=== PATIENT | male | born 1975 | race Caucasian/White ===

== ENCOUNTER → 2018-06-29 | Outpatient (REF) | payer OTHER ==
[~2018-06-29] MED LIST: IBUP80TA PO; PROAAER10 INH; ZITHTAB PO; ZOFR4TAB14 PO
[2018-06-29 11:37] LABS: INFLUENZA A AMPLIFICATION NEGATIVE (NEGATIVE); INFLUENZA B AMPLIFICATION NEGATIVE (NEGATIVE)
== END ==
LOC: M LAB REF 10:49
PROVIDERS: ATTEND Physician Assistant
DX: J11.1 Influenza due to unidentified influenza virus with other respiratory manifestations (principal)

== ENCOUNTER → 2018-08-05 | Outpatient (REF) | payer OTHER ==
[2018-08-05 13:04] LABS: ALBUMIN 4.4 GM/DL (3.2-5.2); ALT/SGPT 80 U/L (12-78); BILIRUBIN,TOTAL 0.3 MG/DL (0.2-1.0); BLOOD UREA NITROGEN 15 MG/DL (7-18); CARBON DIOXIDE LEVEL 26 MEQ/L (21-32); CHLORIDE LEVEL 107 MEQ/L (98-107); CHOLESTEROL LEVEL 217 MG/DL (<200); CHOLESTEROL RISK RATIO 5.292 (<5); CREATININE FOR GFR 0.95 MG/DL (0.70-1.30); GLOMERULAR FILTRATION RATE > 60.0 (>60); GLUCOSE, FASTING 137 MG/DL (70-100); HDL CHOLESTEROL 41 MG/DL (>40); LDL CHOLESTEROL 154 MG/DL (<100); NON-HDL-C 176 MG/DL; POTASSIUM SERUM 4.7 MEQ/L (3.5-5.1); SODIUM LEVEL 140 MEQ/L (136-145); TOTAL PROTEIN 7.8 GM/DL (6.4-8.2); TRIGLYCERIDES LEVEL 112 MG/DL (<150)
== END ==
LOC: M LAB REF 11:50
PROVIDERS: ATTEND Family Medicine Addiction Medicine
DX: R73.9 Hyperglycemia, unspecified (principal)

== ENCOUNTER → 2018-08-12 | Outpatient (REF) | payer OTHER ==
[2018-08-12 14:28] LABS: ALBUMIN 4.3 GM/DL (3.2-5.2); ALT/SGPT 57 U/L (12-78); BILIRUBIN,TOTAL 0.2 MG/DL (0.2-1.0); BLOOD UREA NITROGEN 17 MG/DL (7-18); CALCIUM LEVEL 8.9 MG/DL (8.5-10.1); CARBON DIOXIDE LEVEL 26 MEQ/L (21-32); CHLORIDE LEVEL 107 MEQ/L (98-107); CREATININE FOR GFR 0.95 MG/DL (0.70-1.30); GLOMERULAR FILTRATION RATE > 60.0 (>60); GLUCOSE, FASTING 116 MG/DL (70-100); POTASSIUM SERUM 4.5 MEQ/L (3.5-5.1); SODIUM LEVEL 139 MEQ/L (136-145); TOTAL PROTEIN 7.6 GM/DL (6.4-8.2)
[2018-08-12 15:37] LABS: HEMOGLOBIN A1c 6.3 %
== END ==
LOC: M LAB REF 11:35
PROVIDERS: ATTEND Family Medicine Addiction Medicine
DX: R73.9 Hyperglycemia, unspecified (principal)

== ENCOUNTER 2019-01-09 09:55 | Inpatient (IN) | payer OTHER ==
[~2019-01-09] VITALS: Ht 177.8 cm; Wt 118.0 kg
[~2019-01-09 09:55] MED LIST changes: -ALL10TAB29 PO; -ATOR40TA75 PO; -BASA100I; -GLUC1INJ21 SC; -INSUDET SC; -INSUHUMDS SC; -LISI-538 PO; -METF-791; -RANI150T14 PO; -VENTAER INH
[2019-01-09] MEDS ORDERED: LISI-538 PO (10:38)
[2019-01-09] MEDS ORDERED: ATOR40TA75 PO (10:38)
[2019-01-09 10:46] LABS: BASO # 0.1 10^3/uL (0.0-0.2); BASO % 0.6 % (0.0-1.0); EOS # 0.1 10^3/uL (0.0-0.5); EOS % 0.9 % (0.0-3.0); HEMATOCRIT 48.3 % (42.0-52.0); HEMOGLOBIN 16.1 g/dl (13.5-17.5); LYMPH % 12.5 % (24.0-44.0); MEAN CORPUSCULAR HEMOGLOBIN 27.6 pg (27.0-33.0); MEAN CORPUSCULAR HGB CONC 33.3 g/dl (32.0-36.5); MEAN CORPUSCULAR VOLUME 82.7 fl (80.0-96.0); MONO # 0.6 10^3/uL (0.0-0.8); MONO % 7.2 % (0.0-5.0); NEUTROPHILS # 6.3 10^3/uL (1.5-8.5); NEUTROPHILS % 78.2 % (36.0-66.0); PLATELET COUNT, AUTOMATED 235 10^3/uL (150-450); RED BLOOD COUNT 5.84 10^6/uL (4.30-6.10); WHITE BLOOD COUNT 8.1 10^3/uL (4.0-10.0)
[2019-01-09 11:46] LABS: ALBUMIN 4.3 GM/DL (3.2-5.2); ALT/SGPT 31 U/L (12-78); BILIRUBIN,DIRECT 0.2 MG/DL (0.0-0.2); BILIRUBIN,TOTAL 0.6 MG/DL (0.2-1.0); BLOOD UREA NITROGEN 18 MG/DL (7-18); CALCIUM LEVEL 9.6 MG/DL (8.5-10.1); CARBON DIOXIDE LEVEL 24 MEQ/L (21-32); CHLORIDE LEVEL 92 MEQ/L (98-107); CK-MB VALUE MASS 1.4 NG/ML (<3.6); CPK CREATINE PHOSPHOKINASE 59 U/L (39-308); CREATININE FOR GFR 1.23 MG/DL (0.70-1.30); FREE T4 1.12 NG/DL (0.76-1.46); GLOMERULAR FILTRATION RATE > 60.0 (>60); GLUCOSE, FASTING 761 MG/DL (70-100); LIPASE 596 U/L (73-393); MB/CK RELATIVE INDEX 2.37 (< OR =4); NT-PRO BNP 9 PG/ML (<125); POTASSIUM SERUM 6.7 MEQ/L (3.5-5.1); SODIUM LEVEL 129 MEQ/L (136-145); TOTAL PROTEIN 7.8 GM/DL (6.4-8.2); TROPONIN I < 0.02 NG/ML (< 0.10)
[2019-01-09] MEDS ORDERED: ISOVUE-370 76% 100ML VIAL (Q9967) As Ordered ONE (11:50)
[2019-01-09] MEDS ORDERED: NS 1,000 ML IV ONE ×2 (12:00→12:45)
[2019-01-09] MEDS ORDERED: ONDANSETRON 4MG/2ML VIAL (J2405) IV ONE (12:00)
[2019-01-09 12:39] LABS: HEMOGLOBIN A1c 12.3 %
[2019-01-09 12:40] LABS: AMPHETAMINES LEVEL URINE NEGATIVE (NEGATIVE); BARBITURATES URINE NEGATIVE (NEGATIVE); BENZODIAZEPINES URINE NEGATIVE (NEGATIVE); CANNABINOIDS URINE NEGATIVE (NEGATIVE); COCAINE METABOLITE URINE NEGATIVE (NEGATIVE); METHADONE URINE NEGATIVE (NEGATIVE); OPIATES URINE NEGATIVE (NEGATIVE); PHENCYCLIDINE URINE NEGATIVE (NEGATIVE)
--- NOTE | 2019-01-09 12:51 | REP ---
CT SOFT TISSUES NECK: CT soft tissues neck performed in the axial plane following the intravenous administration of 100 mL of Isovue 370. Sagittal and coronal reconstruction images are performed. There is no significant adenopathy. No mass is seen of the thyroid, parotid or submandibular glands. The airway is widely patent with no narrowing. There is no evidence of epiglottitis. There is no prevertebral soft tissue swelling or abscess. Allen tonsils appear symmetrical. There are mild degenerative changes of the cervical spine. There is a rounded soft tissue density in the posterior inferior left maxillary sinus 1.5 cm in diameter compatible with a retention cyst or polyp. IMPRESSION: No significant acute abnormality. Retention cyst or polyp left maxillary sinus inferiorly 1.5 cm in diameter. Airway widely patent. No mass or adenopathy in the soft tissues of the neck. Electronically Signed by Bill Yo MD 01/09/2019 04:19 P
--- NOTE | 2019-01-09 13:00 | REP ---
CT of the abdomen pelvis with IV contrast, without bowel contrast for diffuse abdominal pain, nausea and weight loss: There are no comparisons. The visualized lower lung marquez are unremarkable. The hepatic parenchyma is less dense than the spleen compatible with hepato steatosis. No hepatic masses are identified. The gallbladder, pancreas and spleen are unremarkable. The kidneys, adrenals and abdominal aorta are unremarkable, except for a 9 mm left renal cortical cyst. There is no retroperitoneal or mesenteric adenopathy. There is no bowel distension or obstruction. The mesentery is unremarkable. Pelvis: The appendix is unremarkable. The bladder is unremarkable. The pelvic bowel loops are unremarkable. There is no pelvic ascites or adenopathy. The thoracic seven vertebral body as an ivory vertebra. This is nonspecific but can be seen in blastic metastasis, Paget's disease and lymphoma. Impression: Essentially negative CT of the abdomen pelvis except that the 7th thoracic vertebra is an ivory vertebra, as discussed. Electronically Signed by Bill Garza MD 01/09/2019 12:50 P
[2019-01-09 13:09] LABS: BLOOD UREA NITROGEN 16 MG/DL (7-18); CALCIUM LEVEL 9.1 MG/DL (8.5-10.1); CARBON DIOXIDE LEVEL 20 MEQ/L (21-32); CHLORIDE LEVEL 96 MEQ/L (98-107); CREATININE FOR GFR 1.04 MG/DL (0.70-1.30); GLOMERULAR FILTRATION RATE > 60.0 (>60); GLUCOSE, FASTING 539 MG/DL (70-100); SODIUM LEVEL 132 MEQ/L (136-145)
[2019-01-09] MEDS ORDERED: INSULIN IV RATE CHANGE DOCUMENTATION ML/HR XX SCH (14:15)
[2019-01-09] MEDS ORDERED: INSULIN HUMAN REGULAR 100 UNITS in NS 99 ML IV SCH ×2 (14:30→15:00)
[2019-01-09] MEDS ORDERED: ALL10TAB29 PO (14:41)
[2019-01-09] MEDS ORDERED: VENTAER INH (14:41)
[2019-01-09] MEDS ORDERED: RANI150T14 PO (14:41)
[2019-01-09 14:55] LABS: VENOUS BASE EXCESS -4.4 (-2.0-2.0); VENOUS HCO3 20.3 MEQ/L (23.0-27.0); VENOUS O2 SATURATION 99.2 % (60.0-80.0); VENOUS PARTIAL PRESSURE CO2 36.8 mmHg (38.0-50.0); VENOUS PARTIAL PRESSURE O2 205.5 mmHg (30.0-50.0); VENOUS STANDARD HCO3 20.9 MEQ/L; VENOUS TOTAL CO2 21.5 MEQ/L (24.0-28.0)
[2019-01-09 16:28] LABS: VENOUS BASE EXCESS -4.9 (-2.0-2.0); VENOUS HCO3 20.8 MEQ/L (23.0-27.0); VENOUS O2 SATURATION 96.1 % (60.0-80.0); VENOUS PARTIAL PRESSURE CO2 40.9 mmHg (38.0-50.0); VENOUS PARTIAL PRESSURE O2 85.3 mmHg (30.0-50.0); VENOUS PH 7.324 UNITS (7.330-7.430); VENOUS STANDARD HCO3 20.4 MEQ/L
[2019-01-09 17:16] VITALS: BP 126/84
[2019-01-09] MEDS ORDERED: NS 1,000 ML IV SCH (17:23)
[2019-01-09] MEDS: INSULIN HUMAN REGULAR 100 UNITS in NS 99 ML IV SCH (17:23)
[2019-01-09] MEDS ORDERED: ONDANSETRON 4MG/2ML VIAL (J2405) IV PRN (17:30)
[2019-01-09] MEDS ORDERED: CETIRIZINE (ZyrTEC) 10 MG TAB PO PRN (17:30)
[2019-01-09 18:07] LABS: BLOOD UREA NITROGEN 15 MG/DL (7-18); CALCIUM LEVEL 8.9 MG/DL (8.5-10.1); CARBON DIOXIDE LEVEL 22 MEQ/L (21-32); CHLORIDE LEVEL 102 MEQ/L (98-107); GLOMERULAR FILTRATION RATE > 60.0 (>60); GLUCOSE, FASTING 255 MG/DL (70-100); MAGNESIUM LEVEL 2.2 MG/DL (1.8-2.4); POTASSIUM SERUM 4.1 MEQ/L (3.5-5.1); SODIUM LEVEL 136 MEQ/L (136-145)
[2019-01-09] MEDS: INSULIN IV RATE CHANGE DOCUMENTATION ML/HR XX SCH ×4 (18:09→23:00)
[2019-01-09] MEDS ORDERED: DEXTROSE 50% 50 ML SYRINGE IV PRN (18:15)
[2019-01-09] MEDS ORDERED: GLUCAGON FOR INJ 1 MG VIAL (J1610) SC PRN (18:15)
[2019-01-09] MEDS ORDERED: GLUCOSE 4 GM CHEW TABLET PO PRN (18:15)
[2019-01-09] MEDS: ENOXAPARIN 40 MG/0.4 ML SYRINGE (J1650) SC SCH (18:23)
[2019-01-09 18:57] LABS: OSMOLALITY SERUM 293 MOSM/KG (275-295)
[2019-01-09 20:00] VITALS: BP 118/74
[2019-01-09] MEDS ORDERED: D5W/0.45% SODIUM CHLORIDE 1,000 ML IV SCH (20:00)
[2019-01-09] MEDS: ATORVASTATIN 20 MG TAB PO SCH (20:10)
[2019-01-09] MEDS: PANTOPRAZOLE 40MG INJ (PROTONIX) (C9113) IV SCH (20:10)
[2019-01-09] MEDS: RAMELTEON 8 MG TAB (ROZEREM) PO SCH (20:10)
[2019-01-09 22:32] LABS: BLOOD UREA NITROGEN 13 MG/DL (7-18); CALCIUM LEVEL 8.2 MG/DL (8.5-10.1); CARBON DIOXIDE LEVEL 25 MEQ/L (21-32); CHLORIDE LEVEL 103 MEQ/L (98-107); CREATININE FOR GFR 0.82 MG/DL (0.70-1.30); GLOMERULAR FILTRATION RATE > 60.0 (>60); GLUCOSE, FASTING 177 MG/DL (70-100); POTASSIUM SERUM 3.6 MEQ/L (3.5-5.1); SODIUM LEVEL 138 MEQ/L (136-145)
--- NOTE | 2019-01-09 22:42 | HPEPDOC ---
General Date of Admission Jan 09, 2019 at 14:43 Date of Service: Jan 09, 2019 Chief Complaint The patient is a 43-year-old male admitted with a reason for visit of Hyperglycemia Due To Type 2 Diabetes Mellitus. Source: Patient Exam Limitations: No limitations Timing/Duration: Week(s), Getting worse Severity: Moderate Associated Symptoms: Loss of appetite, Nausea, Vomiting, Weakness, Other History of Present Illness This is a 43-year-old male who's had about 3 months of malaise. It has been worsening. He has had nausea and vomiting. He's had some diarrhea. Most notable is that he has had remarkable thirst with polydipsia, polyphagia, polyuria, and blurred vision. Patient had been told a few months ago that he had "borderline" or "pre-" diabetes. The patient presents with hyperglycemia with serum glucose greater than 700. The patient has also been complaining of cough. He's actually had this greater than 2 years. He states the cough is productive of significant volume of phlegm. He also has posttussive emesis with it. Home Medications Scheduled Atorvastatin Calcium (Atorvastatin Calcium) 40 Mg Tablet, 40 MG PO QPM, ( Reported) Lisinopril (Lisinopril) 20 Mg Tablet, 20 MG PO DAILY, (Reported) Scheduled PRN Albuterol Sulfate (Ventolin Hfa) 18 Gm Hfa.aer.ad, 2 PUFF INH Q4H PRN for SOB/WHEEZING, (Reported) Cetirizine HCl (Cetirizine HCl) 10 Mg Tablet, 10 MG PO DAILY PRN for SEASONAL ALLERGIES, (Reported) Ranitidine HCl (Ranitidine HCl) 150 Mg Tablet, 150 MG PO BID PRN for HEARTBURN, (Reported) Allergies Coded Allergies: No Known Allergies (Unverified , 05/04/17) Past Medical History Medical History Past medical history includes psoriasis, degenerative disc disease, depression, headaches Surgical History The patient denies any history of surgery. 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 A-FIB/CHADSVASC A-FIB History Current/History of A-Fib/PAF?: No Current PO Anticoag Therapy: No Review of Systems Other systems 10 system review is otherwise negative except as stated in the brief HPI. Physical Examination General Exam: Positive: Alert, Cooperative, Mild Distress Eye Exam: Positive: PERRLA, Conjunctiva & lids normal, EOMI ENT Exam: Positive: Atraumatic, Tongue Midline, Nares Patent, Other ENT (lip. Tongue and oral mucosa are dry) Neck Exam: Positive: Supple; Negative: JVD, thyromegaly Chest Exam: Positive: Clear to auscultation, Normal air movement Telemetry: Positive: Sinus Abdomen Exam: Positive: Normal bowel sounds, Soft, Other (patient has notable central obesity with a BMI of 37); Negative: Tenderness, Hepatospenomegaly Extremity Exam: Positive: Normal pulses, Other (toenails are in good condition); Negative: Clubbing, Cyanosis, Edema Skin Exam: Positive: Lesion (patient does have some psoriatic lesions to his legs) Neuro Exam: Positive: Normal Gait, Normal Speech, Cranial Nerves 3-12 NL, Reflexes 2+ Psych Exam: Positive: Anxiety, Oriented x 3 Vital Signs Vital Signs Date Time Temp Pulse Resp B/P (MAP) Pulse Ox O2 Delivery O2 Flow Rate FiO2 01/09/19 22:00 96 96 01/09/19 20:00 97.9 18 118/74 (89) 01/09/19 10:40 Room Air Laboratory Data Labs 24H Laboratory Tests 2 01/09/19 10:12: Immature Granulocyte % (Auto) 0.6, White Blood Count 8.1, Red Blood Count 5.84, Hemoglobin 16.1, Hematocrit 48.3, Mean Corpuscular Volume 82.7, Mean Corpuscular Hemoglobin 27.6, Mean Corpuscular Hemoglobin Concent 33.3, Red Cell Distribution Width 12.2, Platelet Count 235, Neutrophils (%) (Auto) 78.2H, Lymphocytes (%) (Auto) 12.5L, Monocytes (%) (Auto) 7.2H, Eosinophils (%) (Auto) 0.9, Basophils (%) (Auto) 0.6, Neutrophils # (Auto) 6.3, Lymphocytes # (Auto) 1.0L, Monocytes # (Auto) 0.6, Eosinophils # (Auto) 0.1, Basophils # (Auto) 0.1, Nucleated Red Blood Cells % (auto) 0.0, Anion Gap 13, Glomerular Filtration Rate > 60.0, Calcium Level 9.6, Aspartate Amino Transf (AST/SGOT) 10, Alanine Aminotransferase (ALT/SGPT) 31, Alkaline Phosphatase 141H, Total Bilirubin 0.6, Direct Bilirubin 0.2, Total Creatine Kinase 59, Creatine Kinase MB 1.4, Creatine Kinase MB Relative Index 2.37, Troponin I < 0.02, BC-Xyw-N-Type Natriuretic Peptide 9, Total Protein 7.8, Albumin 4.3, Albumin/Globulin Ratio 1.23, Lipase 596H, Thyroid Stimulating Hormone (TSH) 1.530, Free Thyroxine 1.12 01/09/19 10:20: Estimated Mean Plasma Glucose 306H, Hemoglobin A1c 12.3 01/09/19 11:28: Urine Color COLORLESS, Urine Appearance CLEAR, Urine pH 6.0, Urine Specific [place] 1.027, Urine Protein NEGATIVE, Urine Glucose (UA) 3+H, Urine Ketones 1+H, Urine Blood NEGATIVE, Urine Nitrite NEGATIVE, Urine Bilirubin NEGATIVE, Urine Urobilinogen 0.2, Urine Leukocyte Esterase NEGATIVE, Urine WBC (Auto) 0, Urine RBC (Auto) 1, Urine Hyaline Casts (Auto) 0, Urine Bacteria (Auto) NEGATIVE, Urine Squamous Epithelial Cells 0, Urine Sperm (Auto) 01/09/19 12:02: Urine Amphetamines Screen NEGATIVE, Urine Benzodiazepines Screen NEGATIVE, Urine Opiates Screen NEGATIVE, Urine Methadone Screen NEGATIVE, Urine Barbiturates S creen NEGATIVE, Urine Phencyclidine Screen NEGATIVE, Urine Cocaine Metabolite Screen NEGATIVE, Urine Cannabinoids Screen NEGATIVE 01/09/19 12:21: POC Glucose (Misc Panel) 601*H, POC Sodium (Misc Panel) 132L, POC Potassium (Misc Panel) 5.0, POC Chloride (Misc Panel) 98, POC Total CO2 (Misc Panel) 22.0L, POC Blood Urea Nitrogen (Misc Panel 17, POC Ionized Calcium (Misc Panel) 4.6, POC Creatinine (Misc Panel) 0.8, POC Hematocrit (Misc Panel) 45.0 01/09/19 12:25: Anion Gap 16, Glomerular Filtration Rate > 60.0, Blood Urea Nitrogen 16, Creatinine 1.04, Sodium Level 132L, Potassium Level 5.0#, Chloride Level 96L, Carbon Dioxide Level 20L, Calcium Level 9.1 01/09/19 14:27: Bedside Glucose (Misc Panel) 462H 01/09/19 14:32: POC Lactate (Misc Panel) 1.25 01/09/19 14:40: Blood Gas Bicarbonate Standard 20.9, Venous Blood pH 7.360, Venous Blood Partial Pressure CO2 36.8L, Venous Blood Partial Pressure O2 205.5H, Venous Blood Total Carbon Dioxide 21.5L, Venous Blood HCO3 20.3L, Venous Blood Oxygen Saturation 99.2H, Venous Blood Base Excess -4.4L, B-Hydroxybutyrate 33.76H 01/09/19 16:12: Blood Gas Bicarbonate Standard 20.4, Venous Blood pH 7.324L, Venous Blood Partial Pressure CO2 40.9, Venous Blood Partial Pressure O2 85.3H, Venous Blood Total Carbon Dioxide 22.0L, Venous Blood HCO3 20.8L, Venous Blood Oxygen Saturation 96.1H, Venous Blood Base Excess -4.9L 01/09/19 16:15: Bedside Glucose (Misc Panel) 407H 01/09/19 17:09: Bedside Glucose (Misc Panel) 294H 01/09/19 17:37: Anion Gap 12, Glomerular Filtration Rate > 60.0, Osmolality 293, Blood Urea Nitrogen 15, Creatinine 1.00, Sodium Level 136, Potassium Level 4.1, Chloride Level 102, Carbon Dioxide Level 22, Calcium Level 8.9, Magnesium Level 2.2 01/09/19 18:08: Bedside Glucose (Misc Panel) 249H 01/09/19 19:17: Osmolality 290 01/09/19 19:26: Bedside Glucose (Misc Panel) 202H 01/09/19 20:08: Bedside Glucose (Misc Panel) 174H 01/09/19 21:02: Bedside Glucose (Misc Panel) 182H 01/09/19 21:54: Bedside Glucose (Misc Panel) 186H 01/09/19 21:57: CBC/BMP Laboratory Tests 01/09/19 10:12 Red Blood Count 5.84, Mean Corpuscular Volume 82.7, Mean Corpuscular Hemoglobin 27.6, Mean Corpuscular Hemoglobin Concent 33.3, Red Cell Distribution Width 12.2, Neutrophils (%) (Auto) 78.2 H, Lymphocytes (%) (Auto) 12.5 L, Monocytes (%) (Auto) 7.2 H, Eosinophils (%) (Auto) 0.9, Basophils (%) (Auto) 0.6, Neutrophils # (Auto) 6.3, Lymphocytes # (Auto) 1.0 L, Monocytes # (Auto) 0.6, Eosinophils # (Auto) 0.1, Basophils # (Auto) 0.1 01/09/19 12:25 Calcium Level 9.1 01/09/19 17:37 Calcium Level 8.9 Assessment/Plan 1. Hyperglycemia. This appears to be new onset [id number] diabetes mellitus. Patient's A1c is 12.3, which is consistent with blood sugars on average of 306. Current presentation resembles hyperglycemic hyperosmolar nonketotic syndrome as opposed to DKA. Patient is being treated with an insulin drip and IV fluids. He will ultimately be transitioned to basal bolus insulin regimen. Nutrition services have been consulted for diabetes diet education and patient will receive another diabetic teaching. We have initiated discussion of disease management such as the importance of being followed by a clinical appeals reviewer, concrete block mason and practice professional. We have discussed complications such as vasculopathy, neuropathy, nephropathy and retinopathy. 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 Other findings included hepatosteatosis, left maxillary sinus cyst and simple renal cysts. There are otherwise no findings of adenopathy or other lesions to any organs. The term "Ivory vertebrae" usually refers to Paget's disease. It might refer to a metastatic lesion. Plans are for the patient to undergo bone scan once his blood sugars are controlled. 3. Chronic cough. Patient states he has had this productive cough for at least 2 years if not more. There has been no acute change to it. Recommend follow-up with pulmonology service; he will likely need pulmonary function tests. This can be done outpatient. The patient is inpatient status. Anticipate his length of stay will be greater than 2 midnights. We anticipate that all of his symptoms of new onset diabetes will resolve. Plan / VTE VTE Prophylaxis Ordered?: Yes Plan IVF: Initiate, Continue Diet: Make NPO Activity: Continue Current Diagnostics: Check Labs, Repeat Labs in AM, Other Diagnostics (bone scan when more medically stable) Anticipated Discharge: Home NANO RASMUSSEN MD Jan 09, 2019 22:42
[2019-01-09] MEDS: KCL 40MEQ IN D5/0.45NS 1000ML 1,000 ML IV SCH (22:59)
[2019-01-09] MEDS: ACETAMINOPHEN TAB 650MG DOSE (2X325MG) PO PRN (23:03)
[2019-01-10] VITALS: BP 125/70
[2019-01-10] MEDS: INSULIN IV RATE CHANGE DOCUMENTATION ML/HR XX SCH ×3 (02:01→12:08)
[2019-01-10 02:02] LABS: BLOOD UREA NITROGEN 13 MG/DL (7-18); CALCIUM LEVEL 8.2 MG/DL (8.5-10.1); CARBON DIOXIDE LEVEL 25 MEQ/L (21-32); CHLORIDE LEVEL 103 MEQ/L (98-107); CREATININE FOR GFR 0.85 MG/DL (0.70-1.30); GLOMERULAR FILTRATION RATE > 60.0 (>60); GLUCOSE, FASTING 226 MG/DL (70-100); POTASSIUM SERUM 3.8 MEQ/L (3.5-5.1); SODIUM LEVEL 138 MEQ/L (136-145)
[2019-01-10 04:00] VITALS: BP 118/76
[2019-01-10] MEDS: INSULIN HUMAN REGULAR 100 UNITS in NS 99 ML IV SCH (04:02)
--- NOTE | 2019-01-10 04:40 | ECGEPIP ---
[facility] - ED Test Date: 2019-01-09 Pat Name: KASHIF ORNELAS Department: Room: - Gender: Male Supervisor Stone: SYEDA : 1975 Requested By: JORGE Perez PA-C Order Number: [id number] Reading MD: Refugio Dave Measurements Intervals [place] Rate: 113 P: 25 AL: 148 QRS: 40 QRSD: 84 T: -5 QT: 298 QTc: 409 Interpretive Statements SINUS TACHYCARDIA POSSIBLE INFERIOR MYOCARDIAL INFARCTION, OF INDETERMINATE AGE BENIGN EARLY REPOLARIZATION BASELINE ARTIFACT AFFECTS INTERPRETATION NO PRIORS FOR COMPARISON Electronically Signed on 01-10-2019 4:40:21 EDT by Refugio Dave
[2019-01-10] MEDS: KCL 40MEQ IN D5/0.45NS 1000ML 1,000 ML IV SCH ×2 (05:01→12:12)
[2019-01-10 05:37] LABS: BLOOD UREA NITROGEN 12 MG/DL (7-18); CARBON DIOXIDE LEVEL 24 MEQ/L (21-32); CHLORIDE LEVEL 104 MEQ/L (98-107); CREATININE FOR GFR 0.78 MG/DL (0.70-1.30); GLOMERULAR FILTRATION RATE > 60.0 (>60); GLUCOSE, FASTING 187 MG/DL (70-100); POTASSIUM SERUM 3.6 MEQ/L (3.5-5.1); SODIUM LEVEL 137 MEQ/L (136-145)
[2019-01-10 08:00] VITALS: BP 131/82
[2019-01-10] MEDS: PANTOPRAZOLE 40MG INJ (PROTONIX) (C9113) IV SCH (08:12)
[2019-01-10] MEDS: LISINOPRIL 20 MG TAB PO SCH (08:13)
[2019-01-10] MEDS ORDERED: PANTOPRAZOLE 40MG INJ (PROTONIX) (C9113) IV SCH (09:00)
[2019-01-10] MEDS: ACETAMINOPHEN TAB 650MG DOSE (2X325MG) PO PRN (09:31)
[2019-01-10 10:00] LABS: BLOOD UREA NITROGEN 11 MG/DL (7-18); CALCIUM LEVEL 8.1 MG/DL (8.5-10.1); CARBON DIOXIDE LEVEL 26 MEQ/L (21-32); CHLORIDE LEVEL 104 MEQ/L (98-107); CREATININE FOR GFR 0.76 MG/DL (0.70-1.30); GLOMERULAR FILTRATION RATE > 60.0 (>60); GLUCOSE, FASTING 185 MG/DL (70-100); POTASSIUM SERUM 3.8 MEQ/L (3.5-5.1); SODIUM LEVEL 137 MEQ/L (136-145)
[2019-01-10 12:00] VITALS: BP 128/69
[2019-01-10] MEDS ORDERED: ALBUTEROL 90 MCG/ACT 8GM HFA INHALER INH PRN (13:30)
[2019-01-10] MEDS ORDERED: LEVEMIR (INSULIN DETEMIR) 1 UNITS/0.01ML SC SCH ×2 (14:00→21:00)
[2019-01-10 16:00] VITALS: BP 130/69
[2019-01-10] MEDS: ENOXAPARIN 40 MG/0.4 ML SYRINGE (J1650) SC SCH (18:45)
[2019-01-10] MEDS: HumaLOG INSULIN (NovoLOG) PER UNIT SC SCH (18:46)
[2019-01-10 20:00] VITALS: BP 112/57
[2019-01-10] MEDS: ATORVASTATIN 20 MG TAB PO SCH (21:43)
[2019-01-10] MEDS: RAMELTEON 8 MG TAB (ROZEREM) PO SCH (21:43)
[2019-01-10] MEDS: FAMOTIDINE 20 MG TAB PO SCH (21:43)
[2019-01-10] MEDS ORDERED: HumaLOG INSULIN (NovoLOG) PER UNIT SC ONE (21:45)
[2019-01-10] MEDS ORDERED: PILL CUTTER 1 EACH XX PRN (22:00)
[2019-01-11] VITALS: BP 123/75
[2019-01-11 04:00] VITALS: BP 121/71
[2019-01-11 06:25] LABS: MEAN CORPUSCULAR HGB CONC 34.3 g/dl (32.0-36.5); MEAN CORPUSCULAR VOLUME 81.8 fl (80.0-96.0); PLATELET COUNT, AUTOMATED 182 10^3/uL (150-450); RED BLOOD COUNT 4.89 10^6/uL (4.30-6.10); WHITE BLOOD COUNT 6.1 10^3/uL (4.0-10.0)
[2019-01-11 06:43] LABS: BLOOD UREA NITROGEN 9 MG/DL (7-18); CALCIUM LEVEL 8.4 MG/DL (8.5-10.1); CARBON DIOXIDE LEVEL 23 MEQ/L (21-32); CHLORIDE LEVEL 103 MEQ/L (98-107); CREATININE FOR GFR 0.82 MG/DL (0.70-1.30); GLOMERULAR FILTRATION RATE > 60.0 (>60); GLUCOSE, FASTING 286 MG/DL (70-100); HEMOGLOBIN 13.7 g/dl (13.5-17.5); POTASSIUM SERUM 4.2 MEQ/L (3.5-5.1); SODIUM LEVEL 134 MEQ/L (136-145)
[2019-01-11 08:00] VITALS: BP 129/78
[2019-01-11] MEDS: FAMOTIDINE 20 MG TAB PO SCH (08:24)
[2019-01-11] MEDS: HumaLOG INSULIN (NovoLOG) PER UNIT SC SCH (08:24)
[2019-01-11 08:25] VITALS: BP 129/78
[2019-01-11] MEDS: LISINOPRIL 20 MG TAB PO SCH (08:25)
[2019-01-11] MEDS: ACETAMINOPHEN TAB 650MG DOSE (2X325MG) PO PRN (08:27)
[2019-01-11] MEDS ORDERED: INSUHUMDS SC (10:12)
[2019-01-11] MEDS ORDERED: GLUC1INJ21 SC (10:12)
[2019-01-11] MEDS ORDERED: INSUDET SC (10:12)
--- NOTE | 2019-01-11 10:23 | IPNPDOC ---
Subjective Date Seen The patient was seen on 01/11/19. Subjective Chief Complaint/HPI doing well this morning, no overnight issues. Eager to return home due to sick child at home Objective Physical Examination General Exam: Positive: Alert, Cooperative Eye Exam: Positive: PERRLA, Conjunctiva & lids normal, EOMI ENT Exam: Positive: Atraumatic, Tongue Midline, Nares Patent, Other ENT (lip. Tongue and oral mucosa are dry) Neck Exam: Positive: Supple; Negative: JVD, thyromegaly Chest Exam: Positive: Clear to auscultation, Normal air movement Heart Exam: Positive: Rate Normal, Regular Rhythm, Normal S1, Normal S2; Negative: Murmurs, Rubs Telemetry: Positive: Sinus Abdomen Exam: Positive: Normal bowel sounds, Soft, Other (patient has notable central obesity with a BMI of 37); Negative: Tenderness, Hepatospenomegaly Male Exam: Positive: Normal Genital Exam Extremity Exam: Positive: Normal pulses, Other; Negative: Clubbing, Cyanosis, Edema Skin Exam: Positive: Lesion (patient does have some psoriatic lesions to his legs) Neuro Exam: Positive: Normal Speech Psych Exam: Positive: Mental status NL, Mood NL, Oriented x 3 Assessment /Plan Assessment # Hyperosmolar Hyperglycemic state - resolved. - Home today - lantus 30 units qhs - Humalog sliding scale - Glucagon pen - f/u with PCP in 1 week - will need ongoing diabetic education as an outpatient - May give flu shot prior to discharge # HTN - continue lisinopril # Hyperlipidemia - continue atorvastatin # Ivory vertebrae - bone scan today, f/u results with PCP and further workup as an outpatient # DVT prophylaxis: lovenox # Dispo: Home today Plan/VTE VTE Prophylaxis Ordered?: Yes Plan Anticipated Discharge: Home VS, I&O, 24H, [place] Vital Signs/I&O Vital Signs Date Time Temp Pulse Resp B/P (MAP) Pulse Ox O2 Delivery O2 Flow Rate FiO2 01/11/19 08:25 129/78 01/11/19 08:00 98.2 85 17 96 01/09/19 10:40 Room Air I&O- Last 24 Hours up to 6 AM 01/11/19 06:00 Intake Total 1700 ml Output Total 1850 ml Balance -150 ml Laboratory Data 24H LABS Laboratory Tests 2 01/10/19 11:12: Bedside Glucose (Misc Panel) 189H 01/10/19 12:06: Bedside Glucose (Misc Panel) 206H 01/10/19 16:54: Bedside Glucose (Misc Panel) 256H 01/10/19 21:22: Bedside Glucose (Misc Panel) 372H 01/11/19 00:18: Bedside Glucose (Misc Panel) 338H 01/11/19 06:11: Nucleated Red Blood Cells % (auto) 0.0, Anion Gap 8, Glomerular Filtration Rate > 60.0, Blood Urea Nitrogen 9, Creatinine 0.82, Sodium Level 134L, Potassium Level 4.2, Chloride Level 103, Carbon Dioxide Level 23, Calcium Level 8.4L 01/11/19 08:18: Bedside Glucose (Misc Panel) 322H CBC/BMP Laboratory Tests 01/11/19 06:11 Red Blood Count 4.89, Mean Corpuscular Volume 81.8, Mean Corpuscular Hemoglobin 28.0, Mean Corpuscular Hemoglobin Concent 34.3, Red Cell Distribution Width 12.1, Calcium Level 8.4 L DAWIT PEREZ MD Jan 11, 2019 10:23
--- NOTE | 2019-01-11 12:38 | REP ---
Whole body radionuclide bone scan for an ivory vertebra: On the abdomen/pelvis CT dated 01/09/2019. The seventh vertebral body is an ivory vertebra. On the radionuclide bone scan today there is increased uptake throughout the thoracic seventh vertebral body. Uptake throughout the remainder of the skeletal structures is unremarkable. Impression: There is increased uptake in the the 7th thoracic vertebral body. On the comparison CT this vertebral body as an ivory vertebra. I would recommend MRI follow-up for further evaluation. The study is performed with MDP radiolabeled with 22 mCi of technetium 99m. Electronically Signed by Bill Garza MD 01/11/2019 12:29 P
== END 2019-01-11 12:23 | disposition home or self-care (01) | DRG 420 ==
LOC: M ED 09:55 → M ED INP 14:43 → M ICU 17:03
PROVIDERS: ADMIT Internal Medicine; ATTEND Internal Medicine
DX: E11.00 Type 2 diabetes mellitus with hyperosmolarity without nonketotic hyperglycemic-hyperosmolar coma (NKHHC) (principal); E11.65 Type 2 diabetes mellitus with hyperglycemia; Q76.49 Other congenital malformations of spine, not associated with scoliosis; E78.5 Hyperlipidemia, unspecified

== ENCOUNTER → 2019-01-09 | Outpatient (CLI) | payer OTHER ==
[~2019-01-09] MED LIST changes: +ALL10TAB29 PO; +ATOR40TA75 PO; +BASA100I; +GLUC1INJ21 SC; +INSUDET SC; +INSUHUMDS SC; +LISI-538 PO; +METF-791; +RANI150T14 PO; +VENTAER INH
--- NOTE | 2019-01-09 15:29 | REP ---
CHEST: COMPARISON: 05/04/2017 There is no evidence of acute infiltrate. No pleural effusion is seen. The heart is normal in size. The mediastinal silhouette is unremarkable. The visualized osseous structures are intact. IMPRESSION: No acute pulmonary disease. Electronically Signed by Bill Yo MD 01/09/2019 04:25 P
== END ==
LOC: M RAD 09:19
PROVIDERS: ATTEND Family Medicine Addiction Medicine
DX: J44.9 Chronic obstructive pulmonary disease, unspecified (principal)

== ENCOUNTER → 2019-02-25 | Outpatient (CLI) | payer OTHER ==
[~2019-02-25] MED LIST changes: +ALL10TAB29 PO; +ATOR40TA75 PO; +BASA100I; +GLUC1INJ21 SC; +INSUDET SC; +INSUHUMDS SC; +LISI-538 PO; +METF-791; +RANI150T14 PO; +VENTAER INH
--- NOTE | 2019-02-27 10:28 | REP ---
MRI thoracic spine: 02/25/2019. Indication: Thoracic pain. Patch disease. Comparison: 10/07/2010. Technique: Multiplanar short and long TR sequences of the thoracic spine were completed without IV Gadolinium. Findings: Abnormal marrow signal within T7 corresponds to the recently described CT finding. There is no adjacent soft tissue abnormality. The visualized cord is normal. There are no areas of significant spinal canal or neural foraminal narrowing. No focal disc herniations are present. No additional areas of significant abnormal marrow signal within the thoracic spine is detected. Impression: Diffuse abnormal marrow signal within the T7 vertebral body that does extend into the posterior elements, particularly on the right. There is no osseous expansion or adjacent soft tissue abnormalities. Gadolinium enhanced imaging or biopsy are recommended for further evaluation. The previously provided differential diagnosis remains. Electronically Signed by Edin Solis DO 02/27/2019 10:19 A
== END ==
LOC: M RAD 13:17
PROVIDERS: ATTEND Family Medicine Addiction Medicine
DX: M48.14 Ankylosing hyperostosis [Forestier], thoracic region (principal); M88.1 Osteitis deformans of vertebrae

== ENCOUNTER 2019-03-02 10:38 | Emergency (ER) | payer OTHER ==
[~2019-03-02] VITALS: Ht 177.8 cm; Wt 19.5 kg
[~2019-03-02 10:38] MED LIST changes: -BASA100I; -METF-791
[2019-03-02] MEDS ORDERED: METF-791 (10:44)
[2019-03-02] MEDS ORDERED: BASA100I (10:44)
--- NOTE | 2019-03-02 11:29 | REP ---
Two-view chest: 03/02/2019. Indication: Dyspnea. Comparison: 01/09/2019. Findings: The lungs are clear. There is no pleural effusion or pneumothorax. Cardiac silhouette is stable. Please see recent MRI thoracic spine report for additional details. Impression: No acute cardiopulmonary process. Electronically Signed by Edin Solis DO 03/02/2019 11:21 A
[2019-03-02 11:47] LABS: INFLUENZA A AMPLIFICATION NEGATIVE (NEGATIVE); INFLUENZA B AMPLIFICATION NEGATIVE (NEGATIVE)
[2019-03-02 12:13] VITALS: BP 136/90
== END 2019-03-02 12:14 | disposition home or self-care (01) ==
LOC: M ED 10:38
DX: B34.9 Viral infection, unspecified (principal); I10 Essential (primary) hypertension; J44.9 Chronic obstructive pulmonary disease, unspecified; E11.9 Type 2 diabetes mellitus without complications; Z79.4 Long term (current) use of insulin; Z79.899 Other long term (current) drug therapy

== ENCOUNTER → 2019-03-13 | Outpatient (CLI) | payer OTHER ==
[~2019-03-13] MED LIST changes: +BASA100I; +METF-791
--- NOTE | 2019-03-13 08:53 | PFTRPT ---
Site: [facility], [address] [place] [address], [address] ID: [id number] Name: KASHIF ORNELAS Visit Date: 03/13/2019 Second ID: [id number] Referring Doctor: GYPSY SANTOS MD Reviewing Doctor: Aníbal Cervantes MD Ditch Inspector: Ninfa MTZ RRT Age: 43 : 1975 Sex: Male Race: Height: 70.50 Inches Weight: 250.00 Lbs BSA: 2.31 Order IDs: [id number] Requested Test(s): <RESP-PFT.DLCO> Diagnosis: J44.0 test meet the ATS standards for acceptability and repeatability. Pt was given four puffs of albuterol for postbronchodilator. Review Status: Not Reviewed Pre-Bronch Post-Bronch Pred Actual %Pred Actual %Chng SPIROMETRY FVC (L) 5.33 4.67 87 4.44 -4 FEV1 (L) 4.22 4.00 94 3.88 -3 FEV1/FVC (%) 79 86 108 87 1 FEF 25% (L/sec) 8.72 6.57 75 6.35 -3 FEF 50% (L/sec) 5.73 4.44 77 4.31 -2 FEF 75% (L/sec) 2.01 2.55 126 2.17 -15 FEF 25-75% (L/sec) 3.91 4.11 105 3.98 -3 FEF Max (L/sec) 10.23 8.26 80 8.52 3 FIVC (L) 4.75 4.59 -3 FIF 50% (L/sec) 5.18 5.74 110 7.01 22 FIF Max (L/sec) 5.84 7.20 23 MVV (L/min) 164 113 68 Expiratory Time (sec) 6.68 6.36 -4 Back Extrap Vol (L) 0.15 0.08 -47 Time To FEFmax (sec) 0.101 0.062 -38 LUNG VOLUMES SVC (L) 5.14 4.76 92 IC (L) 3.50 3.03 86 ERV (L) 1.64 1.73 105 TGV (L) 3.54 2.55 72 RV (Pleth) (L) 1.90 0.82 43 TLC (Pleth) (L) 7.04 5.58 79 RV/TLC (Pleth) (%) 27 15 54 DIFFUSION DLCOunc (ml/min/mmHg) 32.71 27.23 83 DLCOcor (ml/min/mmHg) 32.71 27.23 83 DL/VA (ml/min/mmHg/L) 4.65 4.73 101 VA (L) 7.04 5.75 81 BHT (sec) 9.95 IVC (L) 4.35 TLC (SB) (L) 5.90 AIRWAYS RESISTANCE Raw (cmH2O/L/s) 1.45 1.08 74 Gaw (L/s/cmH2O) 1.03 0.94 91 sRaw (cmH2O*s) 4.76 3.41 71 sGaw (1/cmH2O*s) 0.20 0.29 146 BLOOD GASES Hgb (gm/dL) 14.6
== END ==
LOC: M CARPUL 08:01
PROVIDERS: ATTEND Family Medicine Addiction Medicine
DX: J44.0 Chronic obstructive pulmonary disease with (acute) lower respiratory infection (principal)

== ENCOUNTER → 2019-04-10 | Outpatient (CLI) | payer OTHER ==
[2019-04-10 08:25] LABS: BASO % 0.5 % (0.0-1.0); EOS # 0.1 10^3/uL (0.0-0.5); EOS % 1.4 % (0.0-3.0); HEMATOCRIT 44.5 % (42.0-52.0); HEMOGLOBIN 14.7 g/dl (13.5-17.5); LYMPH # 1.8 10^3/uL (1.5-5.0); LYMPH % 21.6 % (24.0-44.0); MEAN CORPUSCULAR HEMOGLOBIN 27.2 pg (27.0-33.0); MEAN CORPUSCULAR VOLUME 82.4 fl (80.0-96.0); MONO # 0.7 10^3/uL (0.0-0.8); NEUTROPHILS # 5.8 10^3/uL (1.5-8.5); NEUTROPHILS % 68.1 % (36.0-66.0); PLATELET COUNT, AUTOMATED 272 10^3/uL (150-450); WHITE BLOOD COUNT 8.5 10^3/uL (4.0-10.0)
[2019-04-10 09:07] LABS: ALBUMIN 3.8 GM/DL (3.2-5.2); ALT/SGPT 40 U/L (12-78); BILIRUBIN,TOTAL 0.4 MG/DL (0.2-1.0); BLOOD UREA NITROGEN 9 MG/DL (7-18); CALCIUM LEVEL 8.6 MG/DL (8.5-10.1); CARBON DIOXIDE LEVEL 27 MEQ/L (21-32); CHLORIDE LEVEL 105 MEQ/L (98-107); CHOLESTEROL LEVEL 132 MG/DL (<200); CHOLESTEROL RISK RATIO 3.882 (<5); CREATININE FOR GFR 1.03 MG/DL (0.70-1.30); GLOMERULAR FILTRATION RATE > 60.0 (>60); GLUCOSE, FASTING 111 MG/DL (70-100); HDL CHOLESTEROL 34 MG/DL (>40); LDL CHOLESTEROL 76 MG/DL (<100); NON-HDL-C 98 MG/DL; POTASSIUM SERUM 4.4 MEQ/L (3.5-5.1); PROSTATIC SPECIFIC AG MONITOR 0.34 NG/ML (< 4.00); SODIUM LEVEL 139 MEQ/L (136-145); TOTAL PROTEIN 7.3 GM/DL (6.4-8.2); TRIGLYCERIDES LEVEL 112 MG/DL (<150)
[2019-04-10 09:11] LABS: MALB URINE SIEMENS 20.9 MG/L; MAU/CREAT RATIO 7.5 MCG/MG (0.0-30.0)
[2019-04-10 11:12] LABS: HEMOGLOBIN A1c 7.1 %
== END ==
LOC: M LAB 07:40
PROVIDERS: ATTEND Family Medicine Addiction Medicine
DX: R63.4 Abnormal weight loss (principal); R35.0 Frequency of micturition; R63.1 Polydipsia; I10 Essential (primary) hypertension; E11.9 Type 2 diabetes mellitus without complications

== ENCOUNTER → 2019-05-09 | Outpatient (CLI) | payer OTHER ==
[~2019-05-09] MED LIST changes: +METHACHOLINE KIT (J7674) INH ONE
--- NOTE | 2019-05-09 08:27 | PFTRPT ---
Site: [facility], [address] [place], [address] ID: [id number] Name: KASHIF ORNELAS Visit Date: 05/09/2019 Second ID: [id number] Referring Doctor: SREE Kuhn Marcus, M Reviewing Doctor: Aníbal Cervantes MD Wharfmaster: Ninfa MTZ, KARIE Age: 43 : 1975 Sex: Male Race: Height: 70.50 Inches Weight: 250.00 Lbs BSA: 2.31 Order IDs: [id number] Requested Test(s): <RESP-PFT.METH CHAL> Diagnosis: R05 of albuterol for postbronchodilator. Review Status: Not Reviewed Pre-Bronch Post-Bronch Pred Actual %Pred Actual %Chng SPIROMETRY FVC (L) 5.33 4.67 87 4.66 FEV1 (L) 4.21 3.88 92 3.82 -1 FEV1/FVC (%) 79 83 105 82 -1 FEF 25% (L/sec) 8.72 5.67 64 5.68 FEF 50% (L/sec) 5.72 4.14 72 4.09 -1 FEF 75% (L/sec) 2.01 2.31 114 1.81 -21 FEF 25-75% (L/sec) 3.90 3.87 99 3.76 -2 FEF Max (L/sec) 10.23 7.59 74 8.06 6 FIVC (L) 4.44 4.43 FIF 50% (L/sec) 5.18 8.17 157 8.57 4 FIF Max (L/sec) 8.24 8.56 3 Expiratory Time (sec) 6.51 6.48 Back Extrap Vol (L) 0.11 0.06 -42 Time To FEFmax (sec) 0.072 0.049 -32
== END ==
LOC: M CARPUL 07:32
PROVIDERS: ATTEND Physician Assistant
DX: R05 Cough (principal)
CPT/HCPCS: 94070; 95070; J7674

== ENCOUNTER → 2020-08-26 | Outpatient (CLI) | payer OTHER ==
[~2020-08-26] MED LIST changes: -ALL10TAB29 PO; +CETI-24 PO; -LISI-538 PO; +LISI20TA33 PO; -METF-791; +METF-838; -METHACHOLINE KIT (J7674) INH ONE
--- NOTE | 2020-08-26 20:45 | REP ---
INDICATION: RIGHT ANKLE INJURY COMPARISON: None. TECHNIQUE: AP, lateral, bilateral oblique views. FINDINGS: Degenerative changes and findings to suggest old injury. No acute fracture or dislocation. Mild swelling. No subcutaneous emphysema or foreign body. IMPRESSION: No acute fracture or dislocation. <Electronically signed by Diego Coates > 08/26/20 [id number]
== END ==
LOC: M RAD 17:26
PROVIDERS: ATTEND Physician Assistant Medical
DX: S94 Injury of nerves at ankle and foot level (principal); M79.89 Other specified soft tissue disorders; X58.XXXA Exposure to other specified factors, initial encounter; Y92.9 Unspecified place or not applicable

== ENCOUNTER → 2020-09-09 | Outpatient (REF) | payer OTHER ==
[2020-09-09 11:43] LABS: BASO # 0.1 10^3/uL (0.0-0.2); BASO % 0.7 % (0.0-1.0); EOS # 0.2 10^3/uL (0.0-0.5); HEMATOCRIT 44.7 % (42.0-52.0); HEMOGLOBIN 14.8 g/dl (13.5-17.5); LYMPH # 1.2 10^3/uL (1.5-5.0); LYMPH % 14.1 % (24.0-44.0); MEAN CORPUSCULAR HEMOGLOBIN 28.2 pg (27.0-33.0); MEAN CORPUSCULAR HGB CONC 33.1 g/dl (32.0-36.5); MEAN CORPUSCULAR VOLUME 85.1 fl (80.0-96.0); MONO # 0.6 10^3/uL (0.0-0.8); MONO % 7.2 % (2.0-8.0); NEUTROPHILS # 6.5 10^3/uL (1.5-8.5); NEUTROPHILS % 75.5 % (36.0-66.0); PLATELET COUNT, AUTOMATED 245 10^3/uL (150-450); RED BLOOD COUNT 5.25 10^6/uL (4.30-6.10); WHITE BLOOD COUNT 8.6 10^3/uL (4.0-10.0)
[2020-09-09 12:20] LABS: ALT/SGPT 118 U/L (12-78); BILIRUBIN,TOTAL 0.5 MG/DL (0.2-1.0); BLOOD UREA NITROGEN 16 MG/DL (7-18); CARBON DIOXIDE LEVEL 29 MEQ/L (21-32); CHLORIDE LEVEL 105 MEQ/L (98-107); CHOLESTEROL LEVEL 182 MG/DL (<200); CHOLESTEROL RISK RATIO 3.433 (<5); CREATININE FOR GFR 0.88 MG/DL (0.70-1.30); FREE T4 0.83 NG/DL (0.76-1.46); GLOMERULAR FILTRATION RATE > 60.0 (>60); GLUCOSE, FASTING 95 MG/DL (70-100); HDL CHOLESTEROL 53 MG/DL (>40); LDL CHOLESTEROL 108 MG/DL (<100); NON-HDL-C 129 MG/DL; POTASSIUM SERUM 4.8 MEQ/L (3.5-5.1); SODIUM LEVEL 138 MEQ/L (136-145); TOTAL PROTEIN 7.5 GM/DL (6.4-8.2); TRIGLYCERIDES LEVEL 103 MG/DL (<150)
[2020-09-09 13:02] LABS: HIV 1&2 SCREEN CENTAUR NEGATIVE (NEGATIVE)
[2020-09-09 13:36] LABS: HEMOGLOBIN A1c 5.4 %
[2020-09-11 00:12] LABS: PSA TOTAL 0.3 ng/mL (0.0-4.0)
== END ==
LOC: M LAB REF 11:24
PROVIDERS: ATTEND Nurse Practitioner Family
DX: Z00.00 Encounter for general adult medical examination without abnormal findings (principal); E66.9 Obesity, unspecified; E11.8 Type 2 diabetes mellitus with unspecified complications; I10 Essential (primary) hypertension

== ENCOUNTER 2021-08-22 14:41 | Emergency (ER) | payer OTHER ==
[~2021-08-22] VITALS: Ht 175.3 cm; Wt 127.3 kg
[~2021-08-22 14:41] MED LIST changes: +ARNU1INH3; +AUGM0.0534; +BENZ200C70 PO; +LOSA50TA28; +OMEP40CA5; +TRUL10IN
[2021-08-22 14:52] VITALS: BP 173/104
[2021-08-22] MEDS ORDERED: PARO30TA4 (15:06)
== END 2021-08-22 15:11 | disposition left against medical advice (07) ==
LOC: M ED 14:41
DX: Z53.21 Procedure and treatment not carried out due to patient leaving prior to being seen by health care provider (principal)

== ENCOUNTER 2021-09-01 16:04 | Emergency (ER) | payer OTHER ==
[~2021-09-01] VITALS: Ht 177.8 cm; Wt 118.2 kg
[~2021-09-01 16:04] MED LIST changes: +PARO30TA4
[2021-09-01 16:05] VITALS: BP 170/94
[2021-09-01] MEDS ORDERED: ACETAMINOPHEN 500 MG TAB PO ONE (16:25)
[2021-09-01 18:55] LABS: RSV AMPLIFICATION NEGATIVE (NEGATIVE)
== END 2021-09-01 19:50 | disposition left against medical advice (07) ==
LOC: M ED 16:04
DX: Z53.21 Procedure and treatment not carried out due to patient leaving prior to being seen by health care provider (principal)

== ENCOUNTER → 2022-01-20 | Outpatient (CLI) | payer OTHER | LOC: M SOG 14:42 | PROVIDERS: ATTEND Physician Assistant | DX: M25.532 Pain in left wrist (principal); M25.531 Pain in right wrist ==

== ENCOUNTER → 2022-03-03 | Outpatient (REF) | payer OTHER ==
[2022-03-03 14:11] LABS: ALBUMIN 3.7 GM/DL (3.2-5.2); ALT/SGPT 103 U/L (12-78); BILIRUBIN,TOTAL 0.4 MG/DL (0.2-1.0); BLOOD UREA NITROGEN 11 MG/DL (7-18); CALCIUM LEVEL 8.9 MG/DL (8.5-10.1); CARBON DIOXIDE LEVEL 28 MEQ/L (21-32); CHLORIDE LEVEL 100 MEQ/L (98-107); CREATININE FOR GFR 0.99 MG/DL (0.70-1.30); GLOMERULAR FILTRATION RATE > 60.0 (>60); GLUCOSE, FASTING 200 MG/DL (70-100); POTASSIUM SERUM 4.5 MEQ/L (3.5-5.1); SODIUM LEVEL 132 MEQ/L (136-145); TOTAL PROTEIN 7.2 GM/DL (6.4-8.2)
[2022-03-03 19:31] LABS: HEMOGLOBIN A1c 8.6 %
== END ==
LOC: M LAB REF 12:15
PROVIDERS: ATTEND Nurse Practitioner Family
DX: E11.65 Type 2 diabetes mellitus with hyperglycemia (principal)

== ENCOUNTER → 2022-03-10 | Outpatient (REF) | payer OTHER ==
[2022-03-10 20:19] LABS: MALB URINE SIEMENS < 5.0 MG/DL; MAU/CREAT RATIO 5.4 MCG/MG (0.0-30.0)
== END ==
LOC: M LAB REF 17:37
PROVIDERS: ATTEND Nurse Practitioner Family
DX: E11.65 Type 2 diabetes mellitus with hyperglycemia (principal)

== ENCOUNTER 2022-06-15 18:59 | Emergency (ER) | payer OTHER ==
[~2022-06-15] VITALS: Ht 177.8 cm; Wt 122.7 kg
[2022-06-15 18:59] VITALS: BP 185/100
[2022-06-15 20:00] LABS: RSV AMPLIFICATION NEGATIVE (NEGATIVE)
[2022-06-15] MEDS ORDERED: ONDA4TAB6 PO (22:10)
[2022-06-15] MEDS ORDERED: NIRMATRELVIR/RITONAVIR CO-PACK (EMERGENCY USE AUTH) PO SCH (22:15)
[2022-06-16] MEDS ORDERED: NIRMATRELVIR/RITONAVIR CO-PACK (EMERGENCY USE AUTH) PO SCH (09:00)
== END 2022-06-15 22:48 | disposition home or self-care (01) ==
LOC: M ED 18:59
DX: U07.1 COVID-19 (principal); E78.5 Hyperlipidemia, unspecified; E11.9 Type 2 diabetes mellitus without complications; J45.909 Unspecified asthma, uncomplicated; Z79.899 Other long term (current) drug therapy

== ENCOUNTER 2022-06-23 23:47 | Emergency (ER) | payer OTHER ==
[~2022-06-23] VITALS: Ht 177.8 cm; Wt 125.9 kg
[~2022-06-23 23:47] MED LIST changes: +ONDA4TAB6 PO
[2022-06-24] MEDS ORDERED: ACETAMINOPHEN 325 MG TAB PO ONE
[2022-06-24] MEDS ORDERED: PSEUDOEPHEDRINE 30 MG TAB PO STA (09:12)
[2022-06-24] MEDS ORDERED: KETOROLAC 30 MG/ML 1ML VIAL IV ONE (09:15)
[2022-06-24] MEDS ORDERED: NS 1,000 ML IV ONE (09:15)
[2022-06-24] MEDS ORDERED: BENZONATATE 100MG CAPSULE PO ONE (09:15)
[2022-06-24] MEDS ORDERED: LIDOCAINE VISCOUS 2% SOLN 15ML UDC SS ONE (09:15)
[2022-06-24 09:49] LABS: BASO % 0.7 % (0.0-1.0); EOS # 0.2 10^3/uL (0.0-0.5); HEMATOCRIT 44.3 % (42.0-52.0); LYMPH # 1.4 10^3/uL (1.5-5.0); LYMPH % 23.9 % (24.0-44.0); MEAN CORPUSCULAR HEMOGLOBIN 27.5 pg (27.0-33.0); MEAN CORPUSCULAR HGB CONC 33.9 g/dl (32.0-36.5); MEAN CORPUSCULAR VOLUME 81.3 fl (80.0-96.0); MONO # 0.7 10^3/uL (0.0-0.8); MONO % 12.1 % (2.0-8.0); NEUTROPHILS # 3.4 10^3/uL (1.5-8.5); NEUTROPHILS % 59.8 % (36.0-66.0); PLATELET COUNT, AUTOMATED 217 10^3/uL (150-450); RED BLOOD COUNT 5.45 10^6/uL (4.30-6.10); WHITE BLOOD COUNT 5.7 10^3/uL (4.0-10.0)
[2022-06-24] MEDS ORDERED: ISOVUE-370 76% 100ML VIAL As Ordered ONE ×2 (10:09→10:14)
[2022-06-24] MEDS ORDERED: ONDANSETRON 4MG 2ML VIAL IV ONE (10:25)
[2022-06-24] MEDS ORDERED: BENZ200C70 PO (11:27)
[2022-06-24] MEDS ORDERED: LIDO15SO4 PO (11:27)
[2022-06-24] MEDS ORDERED: PSEU120T19 PO (11:27)
[2022-06-24 11:51] VITALS: BP 175/102
== END 2022-06-24 11:54 | disposition home or self-care (01) ==
LOC: M ED 23:47
DX: U07.1 COVID-19 (principal); J06.9 Acute upper respiratory infection, unspecified; E11.9 Type 2 diabetes mellitus without complications; I10 Essential (primary) hypertension; J44.9 Chronic obstructive pulmonary disease, unspecified; R16.1 Splenomegaly, not elsewhere classified; K44.9 Diaphragmatic hernia without obstruction or gangrene; Z79.84 Long term (current) use of oral hypoglycemic drugs; Z79.899 Other long term (current) drug therapy
CPT/HCPCS: 71275; 80047; 85025; 87880; 96361; 96374; 96375; 99284; J1885; J2405; Q9967

== ENCOUNTER → 2022-07-16 | Outpatient (REF) | payer OTHER ==
[~2022-07-16] MED LIST changes: +LIDO15SO4 PO; +PSEU120T19 PO
[2022-07-16 13:50] LABS: ALBUMIN 3.8 G/DL (3.2-5.2); ALKALINE PHOSPHATASE 117 U/L (46-116); ALT/SGPT 126 U/L (7.0-40); AST/SGOT 55 U/L (<34); BILIRUBIN,TOTAL 0.5 MG/DL (0.3-1.2); BLOOD UREA NITROGEN 11 MG/DL (9-23); CALCIUM LEVEL 8.8 MG/DL (8.5-10.1); CARBON DIOXIDE LEVEL 27 MMOL/L (20-31); CHLORIDE LEVEL 103 MMOL/L (98-107); CREATININE FOR GFR 0.85 MG/DL (0.70-1.30); GLOMERULAR FILTRATION RATE > 60.0 (>60); GLUCOSE, FASTING 180 MG/DL (60-100); POTASSIUM SERUM 4.6 MMOL/L (3.5-5.1); SODIUM LEVEL 136 MMOL/L (136-145)
[2022-07-16 14:12] LABS: HEMOGLOBIN A1c 8.4 % (4.0-6.0)
== END ==
LOC: M LAB REF 12:11
PROVIDERS: ATTEND Nurse Practitioner Family
DX: E11.65 Type 2 diabetes mellitus with hyperglycemia (principal)

== ENCOUNTER 2022-09-14 10:08 | Emergency (ER) | payer OTHER ==
[~2022-09-14] VITALS: Ht 177.8 cm; Wt 126.2 kg
[~2022-09-14 10:08] MED LIST changes: +LIDO15SO PO; -LIDO15SO4 PO
[2022-09-14] MEDS ORDERED: PARO40TA2 (10:16)
[2022-09-14] MEDS ORDERED: D3 S1CAP (10:16)
[2022-09-14] MEDS ORDERED: [UNRECOGNIZED DRUG - CODE] (10:16)
[2022-09-14 11:51] VITALS: BP 176/120
== END 2022-09-14 11:57 | disposition home or self-care (01) ==
LOC: M ED 10:08
DX: H61.21 Impacted cerumen, right ear (principal); E11.9 Type 2 diabetes mellitus without complications; I10 Essential (primary) hypertension; E78.00 Pure hypercholesterolemia, unspecified

== ENCOUNTER → 2023-02-08 | Outpatient (REF) | payer OTHER ==
[~2023-02-08] MED LIST changes: +D3 S1CAP; +PARO40TA2; +[UNRECOGNIZED DRUG - CODE]
[2023-02-08 13:41] LABS: BASO % 0.2 % (0.0-1.0); EOS # 0.1 10^3/uL (0.0-0.5); EOS % 1.5 % (0.0-3.0); HEMATOCRIT 44.9 % (42.0-52.0); HEMOGLOBIN 15.2 g/dl (13.5-17.5); LYMPH # 1.5 10^3/uL (1.5-5.0); LYMPH % 17.9 % (24.0-44.0); MEAN CORPUSCULAR HEMOGLOBIN 28.7 pg (27.0-33.0); MEAN CORPUSCULAR HGB CONC 33.9 g/dl (32.0-36.5); MEAN CORPUSCULAR VOLUME 84.7 fl (80.0-96.0); MONO # 0.6 10^3/uL (0.0-0.8); MONO % 7.4 % (2.0-8.0); NEUTROPHILS # 6.2 10^3/uL (1.5-8.5); NEUTROPHILS % 72.5 % (36.0-66.0); PLATELET COUNT, AUTOMATED 247 10^3/uL (150-450); WHITE BLOOD COUNT 8.5 10^3/uL (4.0-10.0)
[2023-02-08 13:48] LABS: HEMOGLOBIN A1c 7.1 % (4.0-6.0)
[2023-02-08 14:03] LABS: ALBUMIN 3.9 G/DL (3.2-5.2); ALKALINE PHOSPHATASE 115 U/L (46-116); ALT/SGPT 48 U/L (7.0-40); AST/SGOT 23 U/L (<34); BILIRUBIN,TOTAL 0.6 MG/DL (0.3-1.2); BLOOD UREA NITROGEN 16 MG/DL (9-23); CALCIUM LEVEL 8.9 MG/DL (8.5-10.1); CARBON DIOXIDE LEVEL 30 MMOL/L (20-31); CHLORIDE LEVEL 99 MMOL/L (98-107); CHOLESTEROL LEVEL 170 MG/DL (<200); CREATININE FOR GFR 0.93 MG/DL (0.70-1.30); GLOMERULAR FILTRATION RATE > 60.0 (>60); GLUCOSE, FASTING 140 MG/DL (60-100); HDL CHOLESTEROL 43.5 MG/DL (>40); LDL CHOLESTEROL 94.7 MG/DL (<100); NON-HDL-C 126.5 MG/DL; POTASSIUM SERUM 4.4 MMOL/L (3.5-5.1); SODIUM LEVEL 135 MMOL/L (136-145); THYROID STIMULATING HORMONE 2.311 uIU/ML (0.55-4.78); TOTAL PROTEIN 7.3 G/DL (5.7-8.2); TRIGLYCERIDES LEVEL 159 MG/DL (<150)
== END ==
LOC: M LAB REF 12:20
PROVIDERS: ATTEND Nurse Practitioner Family
DX: Z13.228 Encounter for screening for other metabolic disorders (principal)

== ENCOUNTER 2023-07-16 07:44 | Emergency (ER) | payer OTHER, SELFPAY ==
[~2023-07-16] VITALS: Ht 180.3 cm; Wt 119.6 kg
[~2023-07-16 07:44] MED LIST changes: -LIDO15SO PO; +LIDO15SO8 PO
[2023-07-16] MEDS ORDERED: TRUL0.5I (07:52)
[2023-07-16] MEDS ORDERED: ARNU1INH3 (07:52)
[2023-07-16] MEDS: ACETAMINOPHEN TAB 650MG DOSE (2X325MG) PO ONE (10:39)
[2023-07-16] MEDS: KETOROLAC 30 MG/ML 1ML VIAL IM ONE (10:39)
[2023-07-16] MEDS: LIDOCAINE 5% (LIDODERM) PATCH TD ONE (10:40)
[2023-07-16] MEDS ORDERED: NAPR-837 PO (12:38)
[2023-07-16] MEDS ORDERED: METH-1165 PO (12:38)
[2023-07-16 12:49] VITALS: BP 162/98; TEMP 98.9; O2SAT 98
== END 2023-07-16 12:51 | disposition home or self-care (01) ==
LOC: M ED 07:44
DX: S39.012A Strain of muscle, fascia and tendon of lower back, initial encounter (principal); M51.37 Other intervertebral disc degeneration, lumbosacral region; M16.11 Unilateral primary osteoarthritis, right hip; X58.XXXA Exposure to other specified factors, initial encounter; Y92.009 Unspecified place in unspecified non-institutional (private) residence as the place of occurrence of the external cause; Y93.89 Activity, other specified; Y99.9 Unspecified external cause status; E11.9 Type 2 diabetes mellitus without complications; E78.5 Hyperlipidemia, unspecified; I10 Essential (primary) hypertension; K21.9 Gastro-esophageal reflux disease without esophagitis; Z79.899 Other long term (current) drug therapy
CPT/HCPCS: 72110; 73502; 96372; 99283; J1885

== ENCOUNTER → 2023-08-17 | Outpatient (REF) | payer SELFPAY, OTHER ==
[~2023-08-17] MED LIST changes: +METH-1165 PO; +NAPR-837 PO; +TRUL0.5I
[2023-08-17 13:32] LABS: BASO % 0.4 % (0.0-1.0); EOS # 0.1 10^3/uL (0.0-0.5); EOS % 1.5 % (0.0-3.0); HEMATOCRIT 46.7 % (42.0-52.0); HEMOGLOBIN 15.6 g/dl (13.5-17.5); LYMPH # 1.3 10^3/uL (1.5-5.0); LYMPH % 24.8 % (24.0-44.0); MEAN CORPUSCULAR HEMOGLOBIN 27.8 pg (27.0-33.0); MEAN CORPUSCULAR HGB CONC 33.4 g/dl (32.0-36.5); MEAN CORPUSCULAR VOLUME 83.1 fl (80.0-96.0); MONO # 0.4 10^3/uL (0.0-0.8); MONO % 8.1 % (2.0-8.0); NEUTROPHILS # 3.5 10^3/uL (1.5-8.5); PLATELET COUNT, AUTOMATED 186 10^3/uL (150-450); RED BLOOD COUNT 5.62 10^6/uL (4.30-6.10); WHITE BLOOD COUNT 5.3 10^3/uL (4.0-10.0)
[2023-08-17 14:13] LABS: ALKALINE PHOSPHATASE 93 U/L (46-116); ALT/SGPT 22 U/L (7.0-40); AST/SGOT 15 U/L (<34); BILIRUBIN,TOTAL 0.4 MG/DL (0.3-1.2); BLOOD UREA NITROGEN 14 MG/DL (9-23); CALCIUM LEVEL 9.5 MG/DL (8.5-10.1); CARBON DIOXIDE LEVEL 28 MMOL/L (20-31); CHLORIDE LEVEL 102 MMOL/L (98-107); CHOLESTEROL LEVEL 130 MG/DL (<200); CHOLESTEROL RISK RATIO 4.72 (<5); CREATININE FOR GFR 0.97 MG/DL (0.70-1.30); GLOMERULAR FILTRATION RATE > 60.0 (>60); GLUCOSE, FASTING 128 MG/DL (60-100); HDL CHOLESTEROL 27.5 MG/DL (>40); LDL CHOLESTEROL 80.7 MG/DL (<100); NON-HDL-C 102.5 MG/DL; POTASSIUM SERUM 4.8 MMOL/L (3.5-5.1); SODIUM LEVEL 137 MMOL/L (136-145); TOTAL PROTEIN 7.2 G/DL (5.7-8.2); TRIGLYCERIDES LEVEL 109 MG/DL (<150)
[2023-08-17 14:18] LABS: THYROID STIMULATING HORMONE 1.055 uIU/ML (0.55-4.78)
== END ==
LOC: M LAB REF 12:45
PROVIDERS: ATTEND Nurse Practitioner Family
DX: E66.3 Overweight (principal)

== ENCOUNTER → 2023-11-25 | Outpatient (REF) | payer SELFPAY, OTHER ==
[~2023-11-25] MED LIST changes: +ONDA-282 PO; -ONDA4TAB6 PO; +[UNRECOGNIZED DRUG - CODE]; -[UNRECOGNIZED DRUG - CODE]
[2023-11-25 13:36] LABS: BASO # 0.1 10^3/uL (0.0-0.2); BASO % 0.6 % (0.0-1.0); EOS # 0.2 10^3/uL (0.0-0.5); HEMATOCRIT 45.7 % (42.0-52.0); HEMOGLOBIN 15.2 g/dl (13.5-17.5); LYMPH # 1.2 10^3/uL (1.5-5.0); MEAN CORPUSCULAR HEMOGLOBIN 27.8 pg (27.0-33.0); MEAN CORPUSCULAR HGB CONC 33.3 g/dl (32.0-36.5); MEAN CORPUSCULAR VOLUME 83.5 fl (80.0-96.0); MONO # 0.5 10^3/uL (0.0-0.8); MONO % 6.4 % (2.0-8.0); NEUTROPHILS % 75.5 % (36.0-66.0); PLATELET COUNT, AUTOMATED 250 10^3/uL (150-450); RED BLOOD COUNT 5.47 10^6/uL (4.30-6.10); WHITE BLOOD COUNT 7.9 10^3/uL (4.0-10.0)
[2023-11-25 14:02] LABS: ALKALINE PHOSPHATASE 115 U/L (46-116); ALT/SGPT 40 U/L (7.0-40); AST/SGOT 19 U/L (<34); BILIRUBIN,TOTAL 0.5 MG/DL (0.3-1.2); BLOOD UREA NITROGEN 18 MG/DL (9-23); CALCIUM LEVEL 9.1 MG/DL (8.5-10.1); CARBON DIOXIDE LEVEL 27 MMOL/L (20-31); CHLORIDE LEVEL 100 MMOL/L (98-107); CHOLESTEROL LEVEL 198 MG/DL (<200); CREATININE FOR GFR 0.84 MG/DL (0.70-1.30); GLOMERULAR FILTRATION RATE > 60.0 (>60); GLUCOSE, FASTING 194 MG/DL (60-100); LDL CHOLESTEROL 126.6 MG/DL (<100); POTASSIUM SERUM 4.9 MMOL/L (3.5-5.1); SODIUM LEVEL 134 MMOL/L (136-145); TOTAL PROTEIN 7.3 G/DL (5.7-8.2); TRIGLYCERIDES LEVEL 137 MG/DL (<150)
[2023-11-25 14:03] LABS: THYROID STIMULATING HORMONE 2.957 uIU/ML (0.55-4.78)
== END ==
LOC: M LAB REF 12:56
PROVIDERS: ATTEND Nurse Practitioner Family
DX: E66.01 Morbid (severe) obesity due to excess calories (principal)

== ENCOUNTER 2023-12-07 15:27 | Emergency (ER) | payer OTHER, SELFPAY ==
[~2023-12-07] VITALS: Ht 180.3 cm; Wt 123.8 kg
[2023-12-07 15:39] VITALS: TEMP 98.5
[2023-12-07 16:02] LABS: BASO % 0.5 % (0.0-1.0); EOS # 0.1 10^3/uL (0.0-0.5); EOS % 1.5 % (0.0-3.0); HEMATOCRIT 44.5 % (42.0-52.0); HEMOGLOBIN 15.3 g/dl (13.5-17.5); LYMPH # 1.3 10^3/uL (1.5-5.0); MEAN CORPUSCULAR HEMOGLOBIN 28.1 pg (27.0-33.0); MEAN CORPUSCULAR HGB CONC 34.4 g/dl (32.0-36.5); MEAN CORPUSCULAR VOLUME 81.7 fl (80.0-96.0); MONO # 0.6 10^3/uL (0.0-0.8); MONO % 8.7 % (2.0-8.0); NEUTROPHILS # 5.3 10^3/uL (1.5-8.5); NEUTROPHILS % 71.9 % (36.0-66.0); PLATELET COUNT, AUTOMATED 238 10^3/uL (150-450); RED BLOOD COUNT 5.45 10^6/uL (4.30-6.10); WHITE BLOOD COUNT 7.3 10^3/uL (4.0-10.0)
[2023-12-07] MEDS: LORazepam 1 MG TAB PO ONE (16:04)
[2023-12-07 16:33] LABS: BLOOD UREA NITROGEN 14 MG/DL (9-23); CALCIUM LEVEL 9.1 MG/DL (8.5-10.1); CARBON DIOXIDE LEVEL 27 MMOL/L (20-31); CHLORIDE LEVEL 103 MMOL/L (98-107); CK-MB VALUE MASS < 1.0 NG/ML (<3.6); CPK CREATINE PHOSPHOKINASE 69 U/L (46-171); CREATININE FOR GFR 0.81 MG/DL (0.70-1.30); GLOMERULAR FILTRATION RATE > 60.0 (>60); GLUCOSE, FASTING 181 MG/DL (60-100); MB/CK RELATIVE INDEX 1.44 (< OR =4); POTASSIUM SERUM 4.6 MMOL/L (3.5-5.1); SODIUM LEVEL 134 MMOL/L (136-145)
[2023-12-07 16:36] LABS: THYROID STIMULATING HORMONE 1.735 uIU/ML (0.55-4.78)
[2023-12-07 17:44] LABS: CK-MB VALUE MASS < 1.0 NG/ML (<3.6)
[2023-12-07 17:55] LABS: CPK CREATINE PHOSPHOKINASE 66 U/L (46-171); MB/CK RELATIVE INDEX 1.51 (< OR =4)
[2023-12-07] MEDS: FUROSEMIDE 40MG/4ML VIAL IV ONE (18:25)
[2023-12-07 18:26] VITALS: BP 163/108
[2023-12-07] MEDS: METOPROLOL TART 50 MG TAB PO ONE (18:26)
[2023-12-07] MEDS ORDERED: LOSA100T46 PO (19:24)
[2023-12-07 19:31] VITALS: BP 162/106; O2SAT 96
== END 2023-12-07 19:40 | disposition home or self-care (01) ==
LOC: M ED 15:27 → EDBD 15:27 → M ED 19:40
DX: R07.89 Other chest pain (principal); I10 Essential (primary) hypertension; F41.9 Anxiety disorder, unspecified; E11.9 Type 2 diabetes mellitus without complications; E78.5 Hyperlipidemia, unspecified; K21.9 Gastro-esophageal reflux disease without esophagitis; F32.A Depression, unspecified; Z79.4 Long term (current) use of insulin; Z79.899 Other long term (current) drug therapy
CPT/HCPCS: 71045; 80048; 82550; 82553; 84443; 84484; 85025; 93005; 93041; 94760; 96374; 99285; J1940

== ENCOUNTER → 2024-03-16 | Outpatient (REF) | payer MEDICARE, OTHER, SELFPAY ==
[~2024-03-16] MED LIST changes: +LOSA100T46 PO
[2024-03-16 19:37] LABS: HEMOGLOBIN A1c 9.9 % (4.0-6.0)
[2024-03-16 20:06] LABS: ALBUMIN 3.8 G/DL (3.2-5.2); ALKALINE PHOSPHATASE 107 U/L (40-129); ALT/SGPT 26 U/L (7.0-40); AST/SGOT < 8 U/L (<34); BILIRUBIN,TOTAL 0.3 MG/DL (0.3-1.2); BLOOD UREA NITROGEN 14 MG/DL (9-23); CALCIUM LEVEL 9.1 MG/DL (8.5-10.1); CARBON DIOXIDE LEVEL 26 MMOL/L (20-31); CHLORIDE LEVEL 102 MMOL/L (98-107); CHOLESTEROL LEVEL 233 MG/DL (<200); CHOLESTEROL RISK RATIO 6.11 (<5); CREATININE FOR GFR 0.81 MG/DL (0.70-1.30); GLOMERULAR FILTRATION RATE > 60.0 (>60); GLUCOSE, FASTING 471 MG/DL (60-100); HDL CHOLESTEROL 38.1 MG/DL (>40); LDL CHOLESTEROL 127.3 MG/DL (<100); NON-HDL-C 194.9 MG/DL; POTASSIUM SERUM 5.9 MMOL/L (3.5-5.1); SODIUM LEVEL 135 MMOL/L (136-145); TRIGLYCERIDES LEVEL 338 MG/DL (<150)
== END ==
LOC: M LAB REF 16:34
PROVIDERS: ATTEND Nurse Practitioner Family
DX: E11.65 Type 2 diabetes mellitus with hyperglycemia (principal); E78.5 Hyperlipidemia, unspecified

== ENCOUNTER 2024-08-09 07:45 | Emergency (ER) | payer OTHER ==
[~2024-08-09] VITALS: Ht 177.8 cm; Wt 115.5 kg
[2024-08-09 08:23] LABS: BASO % 0.7 % (0.0-1.0); EOS # 0.1 10^3/uL (0.0-0.5); EOS % 2.2 % (0.0-3.0); HEMATOCRIT 42.9 % (42.0-52.0); HEMOGLOBIN 14.6 g/dl (13.5-17.5); LYMPH % 16.7 % (24.0-44.0); MEAN CORPUSCULAR HEMOGLOBIN 26.9 pg (27.0-33.0); MONO # 0.4 10^3/uL (0.0-0.8); MONO % 7.3 % (2.0-8.0); NEUTROPHILS # 4.3 10^3/uL (1.5-8.5); NEUTROPHILS % 72.6 % (36.0-66.0); PLATELET COUNT, AUTOMATED 200 10^3/uL (150-450); RED BLOOD COUNT 5.43 10^6/uL (4.30-6.10); WHITE BLOOD COUNT 5.9 10^3/uL (4.0-10.0)
[2024-08-09] MEDS: ASPIRIN 81MG CHEW TABLET PO ONE (08:23)
[2024-08-09] MEDS: NITROGLYCERIN 0.4MG SUBL TABLET SL PRN (08:38)
[2024-08-09 08:43] VITALS: BP 146/79
[2024-08-09 08:58] LABS: CK-MB VALUE MASS < 1.0 NG/ML (<3.6)
[2024-08-09 08:59] LABS: LIPASE 37 U/L (12-53)
[2024-08-09 09:00] LABS: CPK CREATINE PHOSPHOKINASE 66 U/L (46-171); MB/CK RELATIVE INDEX 1.51 (< OR =4)
[2024-08-09 09:01] LABS: ALBUMIN 3.6 G/DL (3.2-5.2); ALKALINE PHOSPHATASE 124 U/L (40-129); ALT/SGPT 39 U/L (7.0-40); AST/SGOT 18 U/L (<34); BILIRUBIN,DIRECT 0.2 MG/DL (<0.4); BILIRUBIN,TOTAL 0.5 MG/DL (0.3-1.2); BLOOD UREA NITROGEN 12 MG/DL (9-23); CARBON DIOXIDE LEVEL 25 MMOL/L (20-31); CHLORIDE LEVEL 102 MMOL/L (98-107); CREATININE FOR GFR 0.69 MG/DL (0.70-1.30); GLOMERULAR FILTRATION RATE > 90.0 (>60); GLUCOSE, FASTING 386 MG/DL (60-100); POTASSIUM SERUM 4.4 MMOL/L (3.5-5.1); SODIUM LEVEL 134 MMOL/L (136-145); TOTAL PROTEIN 6.7 G/DL (5.7-8.2)
[2024-08-09] MEDS: SUCRALFATE SUSP 1GM/10ML UD PO ONE (09:11)
[2024-08-09] MEDS: PANTOPRAZOLE 40MG TAB (PROTONIX) PO ONE (09:12)
[2024-08-09 09:50] LABS: CK-MB VALUE MASS < 1.0 NG/ML (<3.6)
[2024-08-09 09:52] LABS: CPK CREATINE PHOSPHOKINASE 65 U/L (46-171); MB/CK RELATIVE INDEX 1.53 (< OR =4)
[2024-08-09] MEDS ORDERED: ISOVUE-370 76% 100ML VIAL As Ordered ONE (11:20)
[2024-08-09 12:14] VITALS: BP 143/90; TEMP 97.2; O2SAT 96
== END 2024-08-09 12:17 | disposition home or self-care (01) ==
LOC: M ED 07:45
DX: E11.65 Type 2 diabetes mellitus with hyperglycemia (principal); I10 Essential (primary) hypertension; Z79.4 Long term (current) use of insulin; Z79.899 Other long term (current) drug therapy

== ENCOUNTER 2024-08-28 10:05 | Emergency (ER) | payer OTHER ==
[~2024-08-28] VITALS: Ht 177.8 cm; Wt 118.2 kg
[~2024-08-28 10:05] MED LIST changes: +ARNU1INH3 INH; -OMEP40CA5; +OMEP40CA5 PO; -TRUL0.5I; +TRUL0.5I SQ
[2024-08-28] MEDS ORDERED: METF-838 PO (10:36)
[2024-08-28 10:41] LABS: BASO % 0.4 % (0.0-1.0); EOS # 0.1 10^3/uL (0.0-0.5); EOS % 0.7 % (0.0-3.0); HEMOGLOBIN 14.7 g/dl (13.5-17.5); LYMPH # 1.2 10^3/uL (1.5-5.0); LYMPH % 12.9 % (24.0-44.0); MEAN CORPUSCULAR HEMOGLOBIN 27.2 pg (27.0-33.0); MEAN CORPUSCULAR HGB CONC 34.2 g/dl (32.0-36.5); MEAN CORPUSCULAR VOLUME 79.5 fl (80.0-96.0); MONO # 0.5 10^3/uL (0.0-0.8); MONO % 5.9 % (2.0-8.0); NEUTROPHILS # 7.1 10^3/uL (1.5-8.5); NEUTROPHILS % 79.7 % (36.0-66.0); PLATELET COUNT, AUTOMATED 224 10^3/uL (150-450); RED BLOOD COUNT 5.41 10^6/uL (4.30-6.10)
[2024-08-28 11:09] LABS: BLOOD UREA NITROGEN 16 MG/DL (9-23); CALCIUM LEVEL 8.5 MG/DL (8.5-10.1); CARBON DIOXIDE LEVEL 22 MMOL/L (20-31); CHLORIDE LEVEL 104 MMOL/L (98-107); CREATININE FOR GFR 0.58 MG/DL (0.70-1.30); GLOMERULAR FILTRATION RATE > 90.0 (>60); GLUCOSE, FASTING 371 MG/DL (60-100); POTASSIUM SERUM 4.6 MMOL/L (3.5-5.1); SODIUM LEVEL 136 MMOL/L (136-145)
[2024-08-28 11:13] LABS: HEMOGLOBIN A1c 11.5 % (4.0-6.0)
[2024-08-28] MEDS ORDERED: QUET100T2 PO (12:05)
[2024-08-28] MEDS ORDERED: HOME MED LIST COMPLETE! XX SCH (12:05)
[2024-08-28] MEDS ORDERED: LOSA50TA28 PO (12:05)
[2024-08-28] MEDS ORDERED: LANTINJ4 SC (12:45)
[2024-08-28 13:01] VITALS: BP 135/101; TEMP 98.4; O2SAT 97
== END 2024-08-28 13:05 | disposition home or self-care (01) ==
LOC: EDBD 10:05 → M ED 10:05
DX: R07.89 Other chest pain (principal); E11.9 Type 2 diabetes mellitus without complications; F43.0 Acute stress reaction; I10 Essential (primary) hypertension; Z79.4 Long term (current) use of insulin; Z79.899 Other long term (current) drug therapy

== ENCOUNTER → 2024-09-08 | Outpatient (REF) | payer OTHER ==
[~2024-09-08] MED LIST changes: +LANTINJ4 SC; +LOSA50TA28 PO; +METF-838 PO; +QUET100T2 PO
[2024-09-08 14:26] LABS: BASO % 0.6 % (0.0-1.0); EOS # 0.1 10^3/uL (0.0-0.5); EOS % 1.8 % (0.0-3.0); HEMOGLOBIN 14.8 g/dl (13.5-17.5); LYMPH # 1.4 10^3/uL (1.5-5.0); LYMPH % 18.9 % (24.0-44.0); MEAN CORPUSCULAR HGB CONC 32.9 g/dl (32.0-36.5); MONO # 0.5 10^3/uL (0.0-0.8); MONO % 7.3 % (2.0-8.0); NEUTROPHILS # 5.2 10^3/uL (1.5-8.5); PLATELET COUNT, AUTOMATED 234 10^3/uL (150-450); RED BLOOD COUNT 5.49 10^6/uL (4.30-6.10); WHITE BLOOD COUNT 7.3 10^3/uL (4.0-10.0)
[2024-09-08 14:30] LABS: ALKALINE PHOSPHATASE 117 U/L (40-129); ALT/SGPT 37 U/L (7.0-40); AST/SGOT 13 U/L (<34); BILIRUBIN,TOTAL 0.5 MG/DL (0.3-1.2); BLOOD UREA NITROGEN 19 MG/DL (9-23); CALCIUM LEVEL 9.4 MG/DL (8.5-10.1); CARBON DIOXIDE LEVEL 28 MMOL/L (20-31); CHLORIDE LEVEL 99 MMOL/L (98-107); CHOLESTEROL LEVEL 182 MG/DL (<200); CHOLESTEROL RISK RATIO 4.28 (<5); CREATININE FOR GFR 0.79 MG/DL (0.70-1.30); GLOMERULAR FILTRATION RATE > 90.0 (>60); GLUCOSE, FASTING 346 MG/DL (60-100); HDL CHOLESTEROL 42.5 MG/DL (>40); LDL CHOLESTEROL 102.3 MG/DL (<100); MAGNESIUM LEVEL 1.8 MG/DL (1.8-2.4); NON-HDL-C 139.5 MG/DL; POTASSIUM SERUM 4.6 MMOL/L (3.5-5.1); SODIUM LEVEL 136 MMOL/L (136-145); TOTAL PROTEIN 7.3 G/DL (5.7-8.2); TRIGLYCERIDES LEVEL 186 MG/DL (<150)
[2024-09-08 14:31] LABS: THYROID STIMULATING HORMONE 2.269 uIU/ML (0.55-4.78)
[2024-09-08 14:44] LABS: HEMOGLOBIN A1c 11.2 % (4.0-6.0)
== END ==
LOC: M LAB REF 12:35
PROVIDERS: ATTEND Nurse Practitioner Family
DX: E66.3 Overweight (principal)

== ENCOUNTER 2024-12-22 06:52 | Emergency (ER) | payer MEDICAID, OTHER ==
[~2024-12-22] VITALS: Ht 177.8 cm; Wt 119.5 kg
[2024-12-22 07:40] VITALS: TEMP 97.3; O2SAT 97
[2024-12-22 07:45] VITALS: BP 142/88
== END 2024-12-22 07:46 | disposition home or self-care (01) ==
LOC: M ED 06:52
DX: I10 Essential (primary) hypertension (principal); E11.9 Type 2 diabetes mellitus without complications; Z79.4 Long term (current) use of insulin; Z79.899 Other long term (current) drug therapy